=== PATIENT | male | born 1955 | race Caucasian/White ===

== ENCOUNTER 2017-06-28 03:29 | Observation (INO) | payer OTHER, SELFPAY ==
[2017-06-28] VITALS (11 sets, daily range): BP systolic 126–184; BP diastolic 69–111; PULSE 50–69; RESP 12–99; TEMP 36.3–37.1; O2SAT 14–99; BMI 29.4; BMI 29.2
--- NOTE | 2017-06-28 | GALL_PTH ---
PATIENT: SERENA COLLIER LOC: MS3 U#:[id number] AGE/SX: 62/M ROOM: IN323 RE06/28/[address]: Dr. Ezequiel Hatfield MD : [id number] BED: 1 DIS: 06/29/2017 SPEC #: [id number] RECD: 06/28/17 14:53 STATUS: ASHLEY REAlba #: [id number] INEZ: 06/28/17 00:[address]: Ezequiel Hatfield DEPT: SURGICAL PATHOLOGY RECD BY: Stan Umana ENTERED: 06/28/17 14:54 SP TYPE: DORIS ONOFRE DR: Dr. Gutierrez Church MD Tissues: A - Gallbladder, NOS B - Liver, NOS Procedures: PAS with Diastase (control) Trichrome (control) Special Stain Group II FE Group II (charge) PAS Stain (control) Surgery Specimen Level III Surgery Specimen Level V Retic (control) HEADER OPERATION: Laparoscopic cholecystectomy, biopsy of liver lesion PRE-OP DIAGNOSIS: Acute cholecystitis TISSUE SUBMITTED: A ? Gallbladder, B ? Liver biopsy MICROSCOPIC DIAGNOSIS A. Gallbladder: Chronic cholecystitis and cholelithiasis. B. Liver, core biopsy: Liver parenchymal tissue with moderate macrovesicular steatosis and mild portal chronic inflammation. See microscopic description and comment. SJ:ana 07/01/17 COMMENT B. Correlation with clinical findings and appropriate follow up are necessary. MICROSCOPIC DESCRIPTION Slides are reviewed. B. The specimen shows a core of liver parenchymal tissue with preserved lobular architecture. Hepatocytes show moderate steatosis. Significant lobular inflammation is not seen. Portal areas show mild chronic inflammation. Iron stain show trace amount of iron. PAS with and without diastase do not show any abnormal accumulation of protein. Trichrome does not show any significant increase of portal or periportal fibrosis. Reticulin stain is unremarkable. All stains are performed with appropriate matched control. GROSS DESCRIPTION A - Received is one container labeled with the patient's name and designated gallbladder. The specimen consists of a gallbladder measuring 12 cm in length and 3 cm in diameter. The external surface is pink-dorman, smooth and glistening for the most part. Focally it is granular, hemorrhagic and contains cautery artifact. The gallbladder contains yellowish, thick mucoid bile and one ovoid yellowish stone measuring 4.5 x 1 x 1.2 cm. The mucosa is bile-stained and without any mass lesions. The gallbladder wall measures up to 0.3 cm in thickness. Cook Cold Meat sections from the gallbladder and the cystic duct are submitted in one cassette. B - Received in fixative is one container labeled with the patient's name and designated liver biopsy. The specimen consists of elongated fragments of brownish-pink tissue measuring 1.5 cm in length and 0.1 cm in diameter. / SJ:rg 06/28/17 TC:3 CPT: 24112, 21594, 61593 x5
--- NOTE | 2017-06-28 04:06 | ED.VIS.GEN ---
History of Present Illness Chief Complaint: Abd Pain Informant: Patient Onset: Hours - around 20 Context: Gradual Onset Timing: Continuous Quality: dull achy Location: periumbilical Current Severity: Moderate Maximum Severity: Moderate Worsened by: deep breathing Relieved by: maybe a little w/ BM, but otherwise nothing Associated Symptoms: nausea, bloating. no vtg, constipation, diarrhea, BRBPR, melena, urinary sx Narrative: Has had some intermittent discomfort in his low back that is worse with sitting in a vehicle, seems a little more prominent since his abdomen started hurting, but not the most severe symptom. No worse with eating toast but that is the only thing he has eaten in the last day, since he has had a decreased appetite. No history of abdominal surgeries or pain like this in the past. Prior similar symptoms: No Recent Illness/Hospitalization: No Past Medical History - Allergies and Home Meds Allergies/Adverse Reactions: Allergies No Known Allergies Allergy (Verified 06/28/17 03:32) Home Medications: Home Medications Medication Instructions Recorded Aspirin [Aspirin EC] 1 tab PO DAILY 06/28/17 Gemfibrozil [Lopid] 600 mg PO BIDAC 06/28/17 Insulin Glargine [Lantus (BKC)] 14 units SC QHS 06/28/17 Metformin HCl 1,000 mg PO BID 06/28/17 Multivitamin [Multiple Vitamins] 1 each PO DAILY 06/28/17 Primary Care Physician: Gutierrez Church MD [Primary Care Provider] - Past Medical History: None Surgical History: no surgical history Lives: Spouse/ Significant Other Smoking Status: Never smoker Drugs: None Review of Systems All systems negative except as indicated General: Denies: Fever Cardiovascular: Denies: Chest pain, Palpitations Respiratory: Denies: Dyspnea, Cough Gastrointestinal: Reports: Abdominal pain, Nausea. Denies: Vomiting, Diarrhea, Constipation, Melena, Hematochezia Genitourinary: Denies: Dysuria, Hematuria Musculoskeletal: Reports: Back pain - no radiation . Denies: Swelling, Extremity Pain Skin: Denies: Rash Neurological: Denies: Headache, Weakness, Parasthesia, Numbness Physical Exam Vital Signs/Narrative: Vital Signs Temp Pulse Resp BP Pulse Ox 06/28/17 03:30 97.7 F L 67 20 H 184/111 H 97 General: Well nourished, Well developed Head: Normocephalic, Atraumatic Eyes: Perrl, EOMI ENT: Moist mucous membranes, No rhinorrhea Neck: Supple, Nontender Cardiovascular: Regular rate, Regular rhythm, No murmurs Respiratory: No distress, CTA bilaterally, Chest nontender Abdomen: Soft, Nondistended, Normal bowel sounds, Tender - RUQ and epigastrium; otherwise, NT/benign.. Negative for: Guarding, Rebound tenderness Back: Nontender, Normal Inspection Extremities: Nontender, No edema Skin: Normal color, No rash Neurological: Alert, Oriented x3, Cranial nerves II-XII grossly intact, Normal Strength, Normal Sensation, Normal Gait Psychological: Normal affect Diagnostic/Tx/Re-eval Laboratory Results 06/28/17 06/28/17 Range/Units 03:35 03:35 WBC 9.2 (4.4-11.0) K/mm3 RBC 4.94 (4.6-6.2) M/mm3 Hgb 15.0 (13.0-16.5) g/dl Hct 43.7 (40-54) % MCV 88.5 (80-94) fL MCH 30.4 (27.0-32.0) pg MCHC 34.3 (32-36) g/gl RDW 12.9 (11.6-14.6) % RDW Differential 41.5 (35.1-43.9) fl Plt Count 189 (150-450) K/mm3 MPV 11.8 (6.2-12.0) fl Immature Gran % (Auto) 0.200 (0.0-0.9) % Neut % (Auto) 69.2 (47-70) % Lymph % (Auto) 19.2 (19-41) % [place] % (Auto) 8.4 (0-10) % Eos % (Auto) 2.8 (0-5) % Baso % (Auto) 0.2 (0-1) % Absolute Neuts (auto) 6.4 (2.0-7.7) X10^3/uL Absolute Lymphs (auto) 1.77 (0.83-4.51) X10^3/ul Total Counted Not Reportable Sodium 140 (136-145) mmol/L Potassium 4.5 (3.5-5.1) mmol/L Chloride 104 (98-107) mmol/L Carbon Dioxide 28.0 (21.0-32.0) mmol/L Anion Gap 8 (5-15) BUN 20 H (7-18) mg/dL Creatinine 1.05 (0.70-1.30) mg/dL Estim Creat Clear Calc 82.12 ml/min Est GFR (MDRD) Af Amer 93 (>60) mL/min Est GFR (MDRD) Non-Af 77 (>60) mL/min BUN/Creatinine Ratio 19.0 (10-20) RATIO Glucose 138 H (74-106) mg/dL Calcium 9.2 (8.5-10.1) mg/dL Total Bilirubin 0.70 (0.20-1.00) mg/dL AST 21 (15-37) U/L ALT 48 (16-61) U/L Alkaline Phosphatase 101 (45-117) U/L Total Protein 7.8 (6.4-8.2) g/dL Albumin 3.8 (3.2-5.0) g/dL Globulin 4.0 (2.2-4.2) g/dL Albumin/Globulin Ratio 1.0 (0.9-2.4) RATIO Lipase 696 H (73-393) U/L Clinical Impression(s) from Imaging Studies Abdomen/Pelvis CT 06/28/17 04:53 IMPRESSION: Hepatomegaly and fatty liver. Cholelithiasis. Gallbladder wall thickening and pericholecystic fluid. An 11 mm stone is present in the gallbladder neck or the cystic duct. No evidence of acute intestinal pathology or acute obstructive uropathy. Electronically Signed: Alec Gutierrez MD at 5:37 EDT Tel , Service support , - Rhythm Strip Rhythm Strip: Sinus Rhythm Rate: 60 Ectopy: None - EKG 1 Interpretation: No Acute Injury Pattern, - - Ectopic atrial rhythm. Normal axis. Normal T waves. - Medical Decision Making Initially, patient given intramuscular Bentyl 10 mg and a GI cocktail, along with IV fluids and Zofran. On reevaluation, he states the symptoms definitely feel better, but his labs are showing an elevated lipase in the high 600s. Given the area where he is tender, my concern is for choledocholithiasis, early cholecystitis, cholangitis, or combination of these problems that could be related to his symptoms and this abnormality. Ultrasound is not available at this hour. Therefore, he is sent for CT scan. Of note, upon presentation before I saw the patient, nurses were concerned about the vagueness of his symptoms and in his upper abdomen, and the fact that he may have had some ST elevation on the monitor, so an EKG was obtained. It may show an ectopic atrial rhythm, but otherwise the EKG is normal and there are no signs of any acute ischemia. CT shows cholelithiasis, signs of early cholecystitis, and a large stone that is either in the cystic duct or neck of the gallbladder. This is all probably causing the patient's pain. His elevated lipase is concerning for either recent or current choledocholithiasis although we do not have the ability to ultrasound him at this time to determine the diameter of the common bile duct. The patient will need to be admitted for further treatment. In discussing with the patient and his , they are requesting Dr. Sims. He is not on-call right now, but they would prefer to stay with his group. Therefore, discussed with Dr. Hatfield, who will evaluate the patient. Will administer antibiotics. ED Disposition - Plan for ED Patient: Disposition: Acute Care Hospital [facility] Chief Complaint: Abd Pain Diagnosis: Cholecystitis, acute with cholelithiasis, Elevated lipase Referrals: Gutierrez Church MD [Primary Care Provider] -
[2017-06-28 04:18] LABS: Absolute Lymphocyte Count 1.77 X10^3/ul (0.83-4.51); Absolute Neutrophil Count 6.4 X10^3/uL (2.0-7.7); Basophil# 0.02 X10^3/uL; Basophil% 0.2 % (0-1); Eosinophil# 0.26 X10^3/uL; Eosinophils% 2.8 % (0-5); Hematocrit 43.7 % (40-54); Lymphocyte # 1.77 X10^3/ul (4.0); Lymphocyte % 19.2 % (19-41); Mean Corp Hgb Conc 34.3 g/gl (32-36); Mean Corpuscular Hgb 30.4 pg (27.0-32.0); Mean Corpuscular Volume 88.5 fL (80-94); Mean Platelet Vol. 11.8 fl (6.2-12.0); Monocyte# 0.77 X10^3/uL; Monocyte% 8.4 % (0-10); Neutrophil # 6.36 X10^3/uL (2.7-7.7); Neutrophil % 69.2 % (47-70); Platelet Count 189 K/mm3 (150-450); RBC Distribution Width CV 12.9 % (11.6-14.6); RBC Distribution Width SD 41.5 fl (35.1-43.9); Red Blood Count 4.94 M/mm3 (4.6-6.2); White Blood Count 9.2 K/mm3 (4.4-11.0)
[2017-06-28 04:19] LABS: POSITIVE COUNT NO; POSITIVE DIFFERENTIAL NO; POSITIVE MORPHOLOGY NO
[2017-06-28] MEDS: Dicyclomine 20 MG/2 ML Vial 10 MG IM (04:19)
[2017-06-28] MEDS: Ondansetron 4 MG/2 ML Vial IV (04:20)
[2017-06-28 04:24] LABS: Red Blood Cells-Urine 0 SEEN /hpf (0-5); Squamous Epithelial Cells - UA 0 SEEN /hpf (0-5); White Blood Cells 0 SEEN /hpf (0-5)
[2017-06-28 04:27] LABS: AST(SGOT) 21 U/L (15-37); Alanine Aminotransfer ALT/SGPT 48 U/L (16-61); Albumin, Serum 3.8 g/dL (3.2-5.0); Alkaline Phosphatase 101 U/L (45-117); Anion Gap 8 (5-15); BUN 20 mg/dL (7-18); Calcium,Total 9.2 mg/dL (8.5-10.1); Chloride 104 mmol/L (98-107); Creatinine, Serum 1.05 mg/dL (0.70-1.30); EST Glomerular Filtration Rate 77 mL/min (>60); Est Glom Filt Rate - Afr Amer 93 mL/min (>60); Estimated Creatinine Clearance 82.12 ml/min; Glucose 138 mg/dL (74-106); Lipase 696 U/L (73-393); Potassium 4.5 mmol/L (3.5-5.1); Protein, Total 7.8 g/dL (6.4-8.2); Sodium Level 140 mmol/L (136-145)
--- NOTE | 2017-06-28 04:53 | CT_ITS ---
STUDY: CT ABDOMEN AND PELVIS WITH CONTRAST REASON FOR EXAM: Male, 62 years old. Right upper quadrant pain and elevated lipase RADIATION DOSAGE (If Supplied By Facility): CTDIvol = ( 10.08 ) mGy, DLP = ( 1092.78 ) mGycm TECHNIQUE: Transaxial images were obtained from the dome of the diaphragm to the symphysis pubis without oral contrast. 100ML ml of Isovue 300 contrast was administered. Sagittal and coronal images were reconstructed. Individualized dose optimization techniques were used for this CT. COMPARISON: None. FINDINGS: The visualized lung bases are unremarkable. The visualized portions of the heart are within normal limits. Hepatomegaly and fatty liver. Cholelithiasis. Gallbladder wall thickening and pericholecystic fluid. An 11 mm stone is present in the gallbladder neck or the cystic duct. Normal spleen. Normal pancreas. Normal bilateral adrenal glands. Multiple right renal cysts, the largest measuring 3.4 cm. Normal left kidney. Normal visualized stomach. Normal small intestine. Normal colon. The appendix is visualized and appears normal. Normal abdominal aorta. Normal inferior vena cava. Normal retroperitoneum. Normal urinary bladder. Normal abdominal wall. There are diffuse degenerative changes of the visualized lumbar spine. CT/Abdomen/Pelvis W IV Cont ONLY IMPRESSION: Hepatomegaly and fatty liver. Cholelithiasis. Gallbladder wall thickening and pericholecystic fluid. An 11 mm stone is present in the gallbladder neck or the cystic duct. No evidence of acute intestinal pathology or acute obstructive uropathy. Electronically Signed: Alec Gutierrez MD at 5:37 EDT Tel , Service support ,
[2017-06-28 05:23] LABS: Color, Urine Yellow (Yellow); Glucose, Dipstick Normal (Normal); Ketone-Dipstick Negative (Negative); Leukocyte Esterase-Dipstick Negative /ul (Negative); Nitrite-Dipstick Negative (Negative); Occult Blood-Urine Negative /ul (Negative); Protein-Dipstick Negative (Negative); Specific Gravity, Urine 1.015 (1.002-1.030); Urine Bilirubin Dipstick Negative (Negative); Urine Clarity Sl. Cloudy (Clear); Urine Urobilinogen Normal (Normal); Urine pH 6.5 (5.0 - 8.0)
--- NOTE | 2017-06-28 05:33 | EKG12_ITS ---
Test Reason : ABDPAIN Blood Pressure : / mmHG Vent. Rate : 059 BPM Atrial Rate : 059 BPM P-R Int : 150 ms QRS Dur : 092 ms QT Int : 396 ms P-R-T Axes : -43 000 030 degrees QTc Int : 392 ms Unusual P axis, possible ectopic atrial bradycardia Abnormal ECG Confirmed by ANT DURAND, KIANA ([id number]), scientific editor MARISSA WESLEY ([id number]) on 07/01/2017 1:58:17 PM Referred By: MARCELA Confirmed By:KIANA CAIN MD
[2017-06-28 05:38] LABS: Bacteria RARE /hpf (None Seen); Mucous, Urine RARE /hpf (<or=2+)
--- NOTE | 2017-06-28 06:42 | PCM.HP.STD ---
Problem List (1) Acute cholecystitis Status: Acute (2) Biliary acute pancreatitis Status: Acute Qualifiers: Acute pancreatitis complication: no infection or necrosis Qualified Code(s): K85.10 - Biliary acute pancreatitis without necrosis or infection History of Present Illness Date of Admission: 06/28/17 The patient is a 62 year old M who began to have epigastric and right upper quadrant pain yesterday morning. He reports a lot of belching with no vomiting. He also reports abdominal bloating. He has been having RUQ pain radiating to his back for the last two weeks intermittently. He reports no fevers or chills. He also says he is having midepigastric pain radiating to the back today. Past Medical History Allergies No Known Allergies Allergy (Verified 06/28/17 03:32) Home Medications: Ambulatory Orders Medication Instructions Recorded Aspirin [Aspirin EC] 1 tab PO DAILY 06/28/17 Gemfibrozil [Lopid] 600 mg PO BIDAC 06/28/17 Insulin Glargine [Lantus (BKC)] 14 units SC QHS 06/28/17 Metformin HCl 1,000 mg PO BID 06/28/17 Multivitamin [Multiple Vitamins] 1 each PO DAILY 06/28/17 Surgical History: no surgical history Lives: Spouse/ Significant Other Smoking Status: Never smoker Drugs: None Review of Systems Constitutional: Denies: Chills, Fever HEENT: Denies: Difficulty Swallowing Cardiovascular: Denies: Chest Pain Respiratory: Denies: Cough, Shortness of Breath Gastrointestinal: Reports: Abdominal Pain - Right upper quadrant pain and epigastric pain radiating to the back, Nausea. Denies: Hematemesis, Hematochezia, Vomiting Genitourinary: Denies: Dysuria Musculoskeletal: Reports: Back Pain. Denies: Joint Tenderness Skin: Denies: Dryness Neurological: Denies: Headaches Psychiatric: Denies: Depression Hematologic/ Lymphatic: Denies: Adenopathy, Anemia VTE Information - Inpt Only VTE Present on Admission: No VTE Mechan Device Prophylaxis: SCD's VTE Pharm Prophylaxis ordered?: No Patient Problems: Active and Suspected Problems Cholecystitis, acute with cholelithiasis (Acute) Elevated lipase (Acute) Acute cholecystitis (Acute) Biliary acute pancreatitis (Acute) - Physical Exam General: Alert, Oriented x3, Cooperative, No apparent distress HEENT: Atraumatic, PERRLA, EOMI Oral: Moist Mucosa Neck: Supple Lungs: Normal air movement Cardiovascular: Regular rate, Regular Rhythm Abdomen: Soft, Non-Distended, Tender - Tender in the right upper quadrant with positive Isidro sign. No guarding or rebound. Extremities: No clubbing Skin: No rashes Musculoskeletal: No Muscle Wasting Neurological: Cranial nerves II-XII grossly intact Psych/Mental Status: Normal Affect, Appropriate Vital Signs Temp Pulse Resp BP Pulse Ox 97.7 F L 54 L 99 H 160/92 H 14 06/28/17 03:30 06/28/17 05:30 06/28/17 05:30 06/28/17 05:30 06/28/17 05:30 Oxygen Delivery Method Room Air Weight: 217 lb 2.485 oz Body Mass Index (BMI) 29.4 Laboratory Tests Past 24 Hrs 06/28/17 06/28/17 06/28/17 03:35 03:35 04:20 WBC 9.2 RBC 4.94 Hgb 15.0 Hct 43.7 MCV 88.5 MCH 30.4 MCHC 34.3 RDW 12.9 RDW Differential 41.5 Plt Count 189 MPV 11.8 Immature Gran % (Auto) 0.200 Neut % (Auto) 69.2 Lymph % (Auto) 19.2 [place] % (Auto) 8.4 Eos % (Auto) 2.8 Baso % (Auto) 0.2 Absolute Neuts (auto) 6.4 Absolute Lymphs (auto) 1.77 Total Counted Not Reportable Sodium 140 Potassium 4.5 Chloride 104 Carbon Dioxide 28.0 Anion Gap 8 BUN 20 H Creatinine 1.05 Estim Creat Clear Calc 82.12 Est GFR (MDRD) Af Amer 93 Est GFR (MDRD) Non-Af 77 BUN/Creatinine Ratio 19.0 Glucose 138 H Calcium 9.2 Total Bilirubin 0.70 AST 21 ALT 48 Alkaline Phosphatase 101 Total Protein 7.8 Albumin 3.8 Globulin 4.0 Albumin/Globulin Ratio 1.0 Lipase 696 H Urine Color Yellow Urine Clarity Sl. Cloudy Urine pH 6.5 Ur Specific [place] 1.015 Urine Protein Negative Urine Glucose (UA) Normal Urine Ketones Negative Urine Occult Blood Negative Urine Nitrite Negative Urine Bilirubin Negative Urine Urobilinogen Normal Ur Leukocyte Esterase Negative Urine RBC 0 SEEN Urine WBC 0 SEEN Ur Squamous Epith Cells 0 SEEN Urine Bacteria RARE Urine Mucus RARE Clinical Impression(s) from Imaging Studies Abdomen/Pelvis CT 05/04/18 04:53 IMPRESSION: Hepatomegaly and fatty liver. Cholelithiasis. Gallbladder wall thickening and pericholecystic fluid. An 11 mm stone is present in the gallbladder neck or the cystic duct. No evidence of acute intestinal pathology or acute obstructive uropathy. Electronically Signed: Alec Gutierrez MD at 5:37 EDT Tel , Service support , Assessment/Plan Active and Suspected Problems Cholecystitis, acute with cholelithiasis (Acute) Elevated lipase (Acute) Acute cholecystitis (Acute) Biliary acute pancreatitis (Acute) 62-year-old male with acute cholecystitis and gallstone pancreatitis 1. The patient has right upper quadrant pain which started acutely yesterday. He has been having on and off pain for the last 2 weeks in the right upper quadrant. Patient also has an elevated lipase. On CT scan the patient has a thickened gallbladder with pericholecystic fluid and multiple gallstones in the neck of the gallbladder. I believe is consistent with acute cholecystitis as well as gallstone pancreatitis from a stone that may have passed already. 2. I recommend laparoscopic cholecystectomy to the patient. I explained the procedure in detail as well as the risks including bleeding, infection, injury to surrounding organs such as the bile duct, liver, bowels. I also explained the possibility of having to convert to an open procedure. I also explained the possibility that there may be retained stones in the common bile duct and he may require further procedures such as ERCP. The patient understands all the risks and is willing to proceed with surgery. 3. I will admit the patient to the floor until OR is ready. I will start him on some antibiotics for acute cholecystitis and keep him n.p.o. I will also start him on insulin sliding scale for his diabetes. Ezequiel Hatfield MD Pager: [facility] [address] [place] [address], [address] [place] [address] Office:
[2017-06-28] MEDS: Morphine 4 MG/ML Syringe IV ×2 (06:46→08:17)
--- NOTE | 2017-06-28 06:48 | HP.PCM_ITS ---
Problem List (1) Acute cholecystitis Status: Acute (2) Biliary acute pancreatitis Status: Acute Qualifiers: Acute pancreatitis complication: no infection or necrosis Qualified Code(s) : K85.10 - Biliary acute pancreatitis without necrosis or infection History of Present Illness Date of Admission: 06/28/17 The patient is a 62 year old M who began to have epigastric and right upper quadrant pain yesterday morning. He reports a lot of belching with no vomiting. He also reports abdominal bloating. He has been having RUQ pain radiating to his back for the last two weeks intermittently. He reports no fevers or chills. He also says he is having midepigastric pain radiating to the back today. Past Medical History Allergies No Known Allergies Allergy (Verified 06/28/17 03:32) Home Medications: Ambulatory Orders Medication Instructions Recorded Aspirin [Aspirin EC] 1 tab PO DAILY 06/28/17 Gemfibrozil [Lopid] 600 mg PO BIDAC 06/28/17 Insulin Glargine [Lantus (BKC)] 14 units SC QHS 06/28/17 Metformin HCl 1,000 mg PO BID 06/28/17 Multivitamin [Multiple Vitamins] 1 each PO DAILY 06/28/17 Surgical History: no surgical history Lives: Spouse/ Significant Other Smoking Status: Never smoker Drugs: None Review of Systems Constitutional: Denies: Chills, Fever HEENT: Denies: Difficulty Swallowing Cardiovascular: Denies: Chest Pain Respiratory: Denies: Cough, Shortness of Breath Gastrointestinal: Reports: Abdominal Pain - Right upper quadrant pain and epigastric pain radiating to the back, Nausea. Denies: Hematemesis, Hematochezia, Vomiting Genitourinary: Denies: Dysuria Musculoskeletal: Reports: Back Pain. Denies: Joint Tenderness Skin: Denies: Dryness Neurological: Denies: Headaches Psychiatric: Denies: Depression Hematologic/ Lymphatic: Denies: Adenopathy, Anemia VTE Information - Inpt Only VTE Present on Admission: No VTE Mechan Device Prophylaxis: SCD's VTE Pharm Prophylaxis ordered?: No Patient Problems: Active and Suspected Problems Cholecystitis, acute with cholelithiasis (Acute) Elevated lipase (Acute) Acute cholecystitis (Acute) Biliary acute pancreatitis (Acute) - Physical Exam General: Alert, Oriented x3, Cooperative, No apparent distress HEENT: Atraumatic, PERRLA, EOMI Oral: Moist Mucosa Neck: Supple Lungs: Normal air movement Cardiovascular: Regular rate, Regular Rhythm Abdomen: Soft, Non-Distended, Tender - Tender in the right upper quadrant with positive Isidro sign. No guarding or rebound. Extremities: No clubbing Skin: No rashes Musculoskeletal: No Muscle Wasting Neurological: Cranial nerves II-XII grossly intact Psych/Mental Status: Normal Affect, Appropriate Vital Signs Temp Pulse Resp BP Pulse Ox 97.7 F L 54 L 99 H 160/92 H 14 06/28/17 03:30 06/28/17 05:30 06/28/17 05:30 06/28/17 05:30 06/28/17 05:30 Oxygen Delivery Method Room Air Weight: 217 lb 2.485 oz Body Mass Index (BMI) 29.4 Laboratory Tests Past 24 Hrs 06/28/17 06/28/17 06/28/17 03:35 03:35 04:20 WBC 9.2 RBC 4.94 Hgb 15.0 Hct 43.7 MCV 88.5 MCH 30.4 MCHC 34.3 RDW 12.9 RDW Differential 41.5 Plt Count 189 MPV 11.8 Immature Gran % (Auto) 0.200 Neut % (Auto) 69.2 Lymph % (Auto) 19.2 [place] % (Auto) 8.4 Eos % (Auto) 2.8 Baso % (Auto) 0.2 Absolute Neuts (auto) 6.4 Absolute Lymphs (auto) 1.77 Total Counted Not Reportable Sodium 140 Potassium 4.5 Chloride 104 Carbon Dioxide 28.0 Anion Gap 8 BUN 20 H Creatinine 1.05 Estim Creat Clear Calc 82.12 Est GFR (MDRD) Af Amer 93 Est GFR (MDRD) Non-Af 77 BUN/Creatinine Ratio 19.0 Glucose 138 H Calcium 9.2 Total Bilirubin 0.70 AST 21 ALT 48 Alkaline Phosphatase 101 Total Protein 7.8 Albumin 3.8 Globulin 4.0 Albumin/Globulin Ratio 1.0 Lipase 696 H Urine Color Yellow Urine Clarity Sl. Cloudy Urine pH 6.5 Ur Specific [place] 1.015 Urine Protein Negative Urine Glucose (UA) Normal Urine Ketones Negative Urine Occult Blood Negative Urine Nitrite Negative Urine Bilirubin Negative Urine Urobilinogen Normal Ur Leukocyte Esterase Negative Urine RBC 0 SEEN Urine WBC 0 SEEN Ur Squamous Epith Cells 0 SEEN Urine Bacteria RARE Urine Mucus RARE Clinical Impression(s) from Imaging Studies Abdomen/Pelvis CT 05/04/18 04:53 IMPRESSION: Hepatomegaly and fatty liver. Cholelithiasis. Gallbladder wall thickening and pericholecystic fluid. An 11 mm stone is present in the gallbladder neck or the cystic duct. No evidence of acute intestinal pathology or acute obstructive uropathy. Electronically Signed: Alec Gutierrez MD at 5:37 EDT Tel , Service support , Assessment/Plan Active and Suspected Problems Cholecystitis, acute with cholelithiasis (Acute) Elevated lipase (Acute) Acute cholecystitis (Acute) Biliary acute pancreatitis (Acute) 62-year-old male with acute cholecystitis and gallstone pancreatitis 1. The patient has right upper quadrant pain which started acutely yesterday. He has been having on and off pain for the last 2 weeks in the right upper quadrant. Patient also has an elevated lipase. On CT scan the patient has a thickened gallbladder with pericholecystic fluid and multiple gallstones in the neck of the gallbladder. I believe is consistent with acute cholecystitis as well as gallstone pancreatitis from a stone that may have passed already. 2. I recommend laparoscopic cholecystectomy to the patient. I explained the procedure in detail as well as the risks including bleeding, infection, injury to surrounding organs such as the bile duct, liver, bowels. I also explained the possibility of having to convert to an open procedure. I also explained the possibility that there may be retained stones in the common bile duct and he may require further procedures such as ERCP. The patient understands all the risks and is willing to proceed with surgery. 3. I will admit the patient to the floor until OR is ready. I will start him on some antibiotics for acute cholecystitis and keep him n.p.o. I will also start him on insulin sliding scale for his diabetes. Ezequiel Hatfield MD Pager: [facility] [address] [place] [address], [address] [place] [address] Office:
[2017-06-28 08:16] LABS: Bedside Glucose 139 mg/dL (70-110)
[2017-06-28] MEDS: Dextrose 5%-Lactated Ringers 1,000 ML 125 ML IV (08:19)
--- NOTE | 2017-06-28 10:08 | NURSING ---
called report to Princess in [facility] at this time.
--- NOTE | 2017-06-28 10:59 | RAD_ITS ---
CLINICAL HISTORY: Male, 62 years old. Single image interpretation for a fluoroscopic image PROCEDURE: Fluoroscopic image for cholangiogram and fluoroscopic timing recording. CHOLANGIOGRAM - 0.23 FLUOROSCOPY TIME (if supplied): (0:23) minutes/seconds A single limited fluoroscopic images seen with a catheter overlying the right upper quadrant and contrast being inserted. Contrast is seen being injected. Given the imaging provided it is limited there may be contrast within the duct or potentially extravasated. RAD/Cholangiogram/ O R,Initial IMPRESSION: Single fluoroscopic image showing contrast administration during cholangiogram recommended intraoperative notes. Electronically Signed: Omaira Farmer MD at 14:28 EDT Tel , Service support ,
[2017-06-28] MEDS: Bupivacaine Mpf 0.5% 30 ML VIAL (13:58)
--- NOTE | 2017-06-28 14:04 | PCM.OPRPT ---
Problem List (1) Acute cholecystitis Status: Acute (2) Biliary acute pancreatitis Status: Acute Qualifiers: Acute pancreatitis complication: no infection or necrosis Qualified Code(s): K85.10 - Biliary acute pancreatitis without necrosis or infection Report of Operation Date of Procedure: 06/28/17 Pre-Operative Diagnosis: Acute cholecystitis Post-Operative Diagnosis: Acute cholecystitis with impacted cystic duct stone Surgery/Procedure Performed:: 1. Laparoscopic cholecystectomy with cholangiogram and attempted common bile duct exploration. 2. Laparoscopic biopsy of liver lesion Specimen's removed: 1. Liver lesion. 2. Gallbladder and contents Drains: YURY to bulb suction Description of Procedure: After obtaining informed consent patient was brought back to the operating room. General anesthesia was induced. The abdomen was prepped and draped in usual sterile fashion. A small midline incision was made superior to the umbilicus and deepened to the level of fascia. The fascia was elevated and incised. Next the peritoneum was elevated and incised in the same fashion. Finger sweep was performed and the [place] trocar was placed into the abdomen. The balloon was inflated. The abdomen was inflated to 15 mmHg. Next a camera was introduced into the abdomen and the abdomen was inspected. Next under direct visualization three 5-mm ports were placed one subxiphoid and 2 subcostal. The gallbladder was aspirated because it was tense and unable to be grasped. Next the gallbladder was elevated and retracted toward the right shoulder. The peritoneum was stripped from the gallbladder. The infundibulum was located and retracted laterally. Next the triangle of Calot was dissected and the cystic duct and cystic artery were identified. The cystic artery was obstructing the view of the cystic duct and so it was clipped and divided. Cholangiograms were then attempted. I placed a Lucia clamp across the distal gallbladder and the needle was placed into the gallbladder. Next under fluoroscopy the gallbladder was instilled with contrast. This did show a distal cystic duct stone and the common bile duct was beginning to fill, the gallbladder then started to leak. The patient was placed back in a steep reverse Trendelenburg and the camera was placed back into the abdomen. The necrotic posterior gallbladder wall had blown out and leaked sludge. This was suctioned out. Next the epigastric port was upsized to a 10 mm port and a Ranfac catheter was placed through the necrotic hole into the cystic duct and a 10 mm clip was placed across the cystic duct. While attempting to flush the cystic duct all of the saline backwash as there was a distal obstruction of the cystic duct. The clip was then removed and visualization of the stone was then attempted. A second power was brought into the room and the choledocho scope was placed through the right upper quadrant incision and into the gallbladder. This was guided downward toward the cystic duct but I was unable to visualize a stone. There is too much sludge in the cystic duct. Next the gallbladder was taken off of the liver in a dome down fashion. It was dissected down until the common duct was identified I was unable to palpate this stone or milked backward. At this time I did not want to dissect any further distally for risk of injuring the common bile duct. Two 10 mm clips were placed across the cystic duct and it was divided. The gallbladder was placed in Endo Catch bag and removed through the umbilical incision. Gallbladder fossa was irrigated and no active bleeding or bile leakage was noted. The camera was then reinserted through the umbilical port. The gallbladder fossa was inspected once more and noted to be hemostatic with no leaking bile. A 15 [place] round drain was placed in the gallbladder fossa and placed to bulb suction. This was sutured in place with a 2-0 nylon suture. The abdomen was suctioned dry the 5 mm ports were removed under direct visualization. The umbilical port was then removed and the air was removed from the abdomen. Next using an 0 Vicryl suture the umbilical fascia was closed in a [id number] fashion. The epigastric port was also closed with an interrupted 0 Vicryl suture at the fascia level. The umbilical port site was irrigated local anesthetic was administered to all the incisions. All the incisions were closed subcuticular 4-0 Monocryl sutures followed by Steri-Strips and dressings. The patient was awoken and taken to PACU in stable condition.
[2017-06-28 14:50] LABS: Bedside Glucose 224 mg/dL (70-110)
[2017-06-28] MEDS: Lactated Ringers 1,000 ML 75 ML IV ×2 (16:48→22:30)
[2017-06-28] MEDS: Piperacil/Tazobactam 3.375 GM Q8 PREMIX IV ×2 (16:48→22:33)
[2017-06-28 17:11] LABS: Bedside Glucose 233 mg/dL (70-110)
[2017-06-28] MEDS: oxyCODONE 5 MG Tablet PO (17:58)
[2017-06-29] VITALS (10 sets, daily range): BP systolic 108–163; BP diastolic 60–91; PULSE 51–73; RESP 16–18; TEMP 36.4–37.1; O2SAT 94–100
[2017-06-29 00:11] LABS: Bedside Glucose 210 mg/dL (70-110)
[2017-06-29] MEDS: oxyCODONE 5 MG Tablet PO ×3 (00:13→14:59)
[2017-06-29] MEDS: Piperacil/Tazobactam 3.375 GM Q8 PREMIX IV ×2 (05:58→13:39)
[2017-06-29 06:06] LABS: Bedside Glucose 140 mg/dL (70-110)
[2017-06-29] MEDS: Acetaminophen 325 MG Tablet 650 MG PO ×2 (07:38→14:59)
--- NOTE | 2017-06-29 07:39 | NURSING ---
Dr Bowens entered pt's room while this nurse was taking pt's vitals. requested labs to be taken silvino as pt may need ERCP today. Called lab and asked for labs to be drawn silvino. Drain dressing was again soaked with hemoserous fluid. Dr Bowens stripped YURY drain tubing and replaced dressing. Handed off to RN Jose Luis events and instructions to keep pt NBM until lab results back and decision made if pt needs ERCP as per Dr Bowens.
--- NOTE | 2017-06-29 07:49 | PCM.PN.SRG ---
Patient Problems: Active and Suspected Problems Cholecystitis, acute with cholelithiasis (Acute) Elevated lipase (Acute) Acute cholecystitis (Acute) Biliary acute pancreatitis (Acute) Subjective: Patient is tolerating clears pain controlled with pain meds, YURY is serosanguineous, positive flatus - Physical Exam General: Alert, Oriented x3, Cooperative, No apparent distress HEENT: Atraumatic, Normocephalic Lungs: Normal air movement Cardiovascular: Regular rate Abdomen: Soft, Distended - Mild to moderate, Tender - Near incisions and YURY, YURY serosanguineous Extremities: No clubbing, No cyanosis, No edema Vital Signs Temp Pulse Resp BP Pulse Ox 97.5 F L 55 L 18 120/70 98 06/29/17 07:35 06/29/17 07:35 06/29/17 07:35 06/29/17 07:35 06/29/17 07:35 Oxygen Flow Rate (L/min) 2 Oxygen Delivery Method Room Air Weight: 215 lb 2.738 oz Body Mass Index (BMI) 29.2 Finger Stick Blood Glucose 224 Intake and Output for Last 24 Hours 06/27/17 06/28/17 06/29/17 23:59 23:59 23:59 Intake Total 475 / 475 2215 / 2215 Output Total 460 / 460 1480 / 1480 Balance 15 15 735 / 735 POC Glucose 06/29/17 06/29/17 06/28/17 05:54 00:03 16:56 POC Glucose 140 H 210 H 233 H 06/28/17 06/28/17 14:43 08:09 POC Glucose 224 H 139 H Medical Necessity - Tobacco Use Smoking Status: Never smoker Tobacco Use: Secondhand Assessment/Plan Active and Suspected Problems Cholecystitis, acute with cholelithiasis (Acute) Elevated lipase (Acute) Acute cholecystitis (Acute) Biliary acute pancreatitis (Acute) 62-year-old male status post laparoscopic cholecystectomy postop day 1 for acute cholecystitis, pancreatitis 1. Await LFTspending, if LFTs are elevated patient may need an ERCP today. If LFTs are normal patient may advance diet continues to do well we would remove the drain which is serosanguineous and DC him home. 2. Patient continued on Zosyn due to the acute cholecystitis as well as a possible stone in bile duct as we were unable to get clear cholangiograms during the surgery with a history of pancreatitis. 3. Diabetes continue sliding insulin scale. 4. Encourage ambulation. Layla Maravilla M.D. Pager: [phone] [facility] [address] [place] [address], [address] [place] [address] Office: [phone]
--- NOTE | 2017-06-29 07:52 | PN.SURG_ITS ---
Patient Problems: Active and Suspected Problems Cholecystitis, acute with cholelithiasis (Acute) Elevated lipase (Acute) Acute cholecystitis (Acute) Biliary acute pancreatitis (Acute) Subjective: Patient is tolerating clears pain controlled with pain meds, YURY is serosanguineous, positive flatus - Physical Exam General: Alert, Oriented x3, Cooperative, No apparent distress HEENT: Atraumatic, Normocephalic Lungs: Normal air movement Cardiovascular: Regular rate Abdomen: Soft, Distended - Mild to moderate, Tender - Near incisions and YURY, YURY serosanguineous Extremities: No clubbing, No cyanosis, No edema Vital Signs Temp Pulse Resp BP Pulse Ox 97.5 F L 55 L 18 120/70 98 06/29/17 07:35 06/29/17 07:35 06/29/17 07:35 06/29/17 07:35 06/29/17 07:35 Oxygen Flow Rate (L/min) 2 Oxygen Delivery Method Room Air Weight: 215 lb 2.738 oz Body Mass Index (BMI) 29.2 Finger Stick Blood Glucose 224 Intake and Output for Last 24 Hours 06/27/17 06/28/17 06/29/17 23:59 23:59 23:59 Intake Total 475 / 475 2215 / 2215 Output Total 460 / 460 1480 / 1480 Balance 15 15 735 / 735 POC Glucose 06/29/17 06/29/17 06/28/17 05:54 00:03 16:56 POC Glucose 140 H 210 H 233 H 06/28/17 06/28/17 14:43 08:09 POC Glucose 224 H 139 H Medical Necessity - Tobacco Use Smoking Status: Never smoker Tobacco Use: Secondhand Assessment/Plan Active and Suspected Problems Cholecystitis, acute with cholelithiasis (Acute) Elevated lipase (Acute) Acute cholecystitis (Acute) Biliary acute pancreatitis (Acute) 62-year-old male status post laparoscopic cholecystectomy postop day 1 for acute cholecystitis, pancreatitis 1. Await LFTspending, if LFTs are elevated patient may need an ERCP today. If LFTs are normal patient may advance diet continues to do well we would remove the drain which is serosanguineous and DC him home. 2. Patient continued on Zosyn due to the acute cholecystitis as well as a possible stone in bile duct as we were unable to get clear cholangiograms during the surgery with a history of pancreatitis. 3. Diabetes continue sliding insulin scale. 4. Encourage ambulation. Layla Maravilla M.D. Pager: [phone] [facility] [address] [place] [address], [address] [place] [address] Office: [phone]
[2017-06-29 08:05] LABS: Absolute Neutrophil Count 5.5 X10^3/uL (2.0-7.7); Basophil# 0.01 X10^3/uL; Basophil% 0.1 % (0-1); Eosinophil# 0.09 X10^3/uL; Eosinophils% 1.1 % (0-5); Hematocrit 38.1 % (40-54); Hemoglobin 12.7 g/dl (13.0-16.5); Lymphocyte % 18.8 % (19-41); Mean Corp Hgb Conc 33.3 g/gl (32-36); Mean Corpuscular Hgb 30.2 pg (27.0-32.0); Mean Corpuscular Volume 90.5 fL (80-94); Mean Platelet Vol. 11.8 fl (6.2-12.0); Monocyte% 11.3 % (0-10); Neutrophil # 5.48 X10^3/uL (2.7-7.7); Neutrophil % 68.6 % (47-70); Platelet Count 145 K/mm3 (150-450); RBC Distribution Width CV 12.8 % (11.6-14.6); RBC Distribution Width SD 42.4 fl (35.1-43.9); Red Blood Count 4.21 M/mm3 (4.6-6.2)
[2017-06-29 08:06] LABS: POSITIVE COUNT NO; POSITIVE DIFFERENTIAL NO; POSITIVE MORPHOLOGY NO
[2017-06-29 08:28] LABS: ALB/GLOB Ratio 0.9 RATIO (0.9-2.4); AST(SGOT) 105 U/L (15-37); Alanine Aminotransfer ALT/SGPT 229 U/L (16-61); Albumin, Serum 2.9 g/dL (3.2-5.0); Alkaline Phosphatase 75 U/L (45-117); Anion Gap 6 (5-15); BUN 16 mg/dL (7-18); BUN/Creat Ratio 15.8 RATIO (10-20); Chloride 104 mmol/L (98-107); Creatinine, Serum 1.01 mg/dL (0.70-1.30); EST Glomerular Filtration Rate 80 mL/min (>60); Est Glom Filt Rate - Afr Amer 97 mL/min (>60); Estimated Creatinine Clearance 85.37 ml/min; Globulin 3.3 g/dL (2.2-4.2); Glucose 134 mg/dL (74-106); Lipase 182 U/L (73-393); Protein, Total 6.2 g/dL (6.4-8.2); Sodium Level 140 mmol/L (136-145)
--- NOTE | 2017-06-29 10:34 | NURSING ---
REport called to Kellie Sosa RN, with vitals signs and blood glucose of 127, no coverage given. Informed that he has a hx of running cherie.
[2017-06-29 11:11] LABS: Bedside Glucose 127 mg/dL (70-110)
--- NOTE | 2017-06-29 11:25 | PN_ITS ---
Progress Note This morning the patient's LFTs have gone up. I explained to the patient the concern for obstruction in the common bile duct. I did recommend ERCP for evaluation of the common bile duct for obstruction. I explained the risks of ERCP including but not limited to bleeding, infection, perforation of the bile duct or bowel, pancreatitis. The patient understands risks and is want to proceed with surgery. I also swing the possibility of having to place a stent if I was unable to remove the stone or if I am unable to access the bile duct. Ezequiel Hatfield MD Pager: [facility] [address] [place] [address], [address] [place] [address] Office:
--- NOTE | 2017-06-29 11:30 | RAD_ITS ---
STUDY: ERCP. REASON FOR EXAM: Male, 62 years old. Gallstones. TECHNIQUE: 4 intraprocedural images were presented for interpretation. COMPARISON: CT the abdomen and pelvis, June 28, 2017. FINDINGS: Initial image demonstrates the endoscope in the duodenum with cannulization of the CBD. A wire extends upward into the left intrahepatic ducts. Contrast fills the ductal system without filling defect or mass. There is no evidence of stricture. The second through fifth images demonstrate evidence of a balloon stripping of the duct. Again no filling defect or mass is seen. Please refer to the procedural report for further details. RAD/ERCP Biliary Only IMPRESSION: ERCP in the OR. Electronically Signed: Bryan Garcia DO at 14:18 EDT Tel [phone], Service support ,
--- NOTE | 2017-06-29 12:38 | OP.PCM_ITS ---
Problem List (1) Acute cholecystitis Status: Acute (2) Biliary acute pancreatitis Status: Acute Qualifiers: Acute pancreatitis complication: no infection or necrosis Qualified Code(s) : K85.10 - Biliary acute pancreatitis without necrosis or infection Report of Operation Date of Procedure: 06/29/17 Pre-Operative Diagnosis: Elevated LFTs and gallstone pancreatitis Post-Operative Diagnosis: Common bile duct sludge Surgery/Procedure Performed:: ERCP with sphincterotomy Specimen's removed: None Description of Procedure: After describing the risks of the procedure as well as the procedure in detail informed consent was obtained. Patient was brought to the operating room and general anesthesia was induced. The patient was then placed in a semi-prone position. Next, the side-viewing endoscope was placed into the mouth and down into the stomach and advanced into the duodenum. The ampulla was located. A sphinctertome was used to cannulate the common bile duct and location was confirmed on fluoroscopy. The guidewire was placed in the common bile duct and using sphincterotome and electrocautery a sphincterotomy was performed. Hemostasis was good. Next the sphincterotome was removed leaving the guidewire in the common bile duct. A balloon was then introduced over the guidewire and the common bile duct and several sweeps were performed. The common bile duct was dilated to over 1 cm. The 12 mm balloon did not span the common bile duct at its midpoint. There was sludge removed from the distal common bile duct with no stones identified. There is no evidence of cystic duct leak. The balloon was removed as well as the guidewire. The side-viewing scope was then withdrawn back into the stomach and the stomach was suctioned. Next, the scope was removed. The patient's YURY was nonbilious and DC was anticipated so his right upper quadrant YURY was removed at the end of the procedure and a bandage was placed over this incision. The patient was taken to PACU in stable condition. The patient tolerated the procedure well.
--- NOTE | 2017-06-29 12:38 | PCM.DC.GB ---
Discharge Diet: Light diet - advance as tolerated Discharge Activity: Return to Normal Activity, May Not Drive - for 2-3 days or while taking narcotic pain medicataions., May Shower, - - Do not drive, work heavy equipment or sign legal documents for 24 hours. Additional Activity Instructions:: Pain medication may cause nausea. You should typically eat light foods as you take your pain medications. Pain medication may also cause constipation. If this is a problem for you, please discuss with your doctor. Call your doctor if your incision/area has: Continuous Slow Oozing, Sudden Increased Bleeding, Increased Pain/ Swelling, Increased Redness, Foul Smelling Discharge, Fever of 101 or Higher Call your doctor if you observe: Fever of 101 or Higher Suture Line Care: Avoid Pulling/Pushing, Avoid Pinching/Bending Additional Dressing/Incision Instructions:: Leave operative bandaids on for 2 days. When you remove dressing, leave Steri-Strips on until your follow-up appointment, or until the Steri-Strips fall off on their own. Allergies/Adverse Reactions: Allergies No Known Allergies Allergy (Verified 06/28/17 03:32) Medications to take at Discharge Aspirin [Aspirin EC] 1 tab PO DAILY 06/28/17 Fluticasone 0.05% [Flonase Nasal [place]] 1 spray NASAL QHS 06/28/17 Gemfibrozil [Lopid] 600 mg PO BIDAC 06/28/17 Insulin Glargine [Lantus (BKC)] 14 units SC QHS 06/28/17 Metformin HCl 1,000 mg PO BID 06/28/17 Multivitamin [Multiple Vitamins] 1 each PO DAILY 06/28/17 Oxycodone HCl/Acetaminophen [Percocet 5/325] 1 - 2 tablet PO Q4H PRN PRN 7 Days #30 tablet 06/29/17 The following prescriptions were given: Oxycodone HCl/Acetaminophen [Percocet 5/325] 1 - 2 tablet PO Q4H PRN PRN 7 Days #30 tablet PRN Reason: Pain Primary Care Physician: Gutierrez Church MD [Primary Care Provider] - Please Follow Up With: Ezequiel Hatfield MD When: Please call to schedule 2 week follow up appointment. [phone]
--- NOTE | 2017-06-29 12:41 | DS.PCM_ITS ---
Discharge Date and Diagnosis Date of Admission: 06/28/17 Date of Discharge: 06/29/17 - Primary Discharge Diagnosis Active and Suspected Problems Cholecystitis, acute with cholelithiasis (Acute) Elevated lipase (Acute) Acute cholecystitis (Acute) Biliary acute pancreatitis (Acute) Hospital Course and Treatment Imaging Results: 06/29/17 12:00 ERCP Biliary/Pancreas [RAD] Urgent O.R. Fluoro for C-Arm [RAD] Urgent Clinical Impression(s) from Imaging Studies Abdomen/Pelvis CT 06/28/17 04:53 IMPRESSION: Hepatomegaly and fatty liver. Cholelithiasis. Gallbladder wall thickening and pericholecystic fluid. An 11 mm stone is present in the gallbladder neck or the cystic duct. No evidence of acute intestinal pathology or acute obstructive uropathy. Electronically Signed: Alec Gutierrez MD at 5:37 EDT Tel , Service support , Cholangiogram 06/28/17 10:59 IMPRESSION: Single fluoroscopic image showing contrast administration during cholangiogram recommended intraoperative notes. Electronically Signed: Omaira Farmer MD at 14:28 EDT Tel , Service support , Operations: [email or web address], ERCP Procedures: None Summary of Care Provided: The patient is a 62 year old M who presented to the emergency room with right upper quadrant radiating to the back. CT showed thickening of the gallbladder wall as well as 2 calcified stones in the gallbladder at the neck. The patient was taken for laparoscopic cholecystectomy at that time the patient had a lot of inflammation in the right upper quadrant as well as a possible liver scar which was biopsied. After surgery YURY drain was left in place and the patient was admitted to the floor and kept on Zosyn. The following morning his LFTs had risen and there was concern for stone escaping the cystic duct and obstructing the common bile duct as a cholangiogram was never able to be performed during laparoscopic cholecystectomy due to the inflammation and impacted cystic duct stone. The patient was taken for ERCP the following morning which revealed a dilated common bile duct and distal common duct sludge. The YURY drain was removed and the patient was sent back to the floor. Once the patient was tolerating a diet he was discharged home. Discharge Diet: Light diet - advance as tolerated Discharge Activity: Return to Normal Activity, May Not Drive - for 2-3 days or while taking narcotic pain medicataions., May Shower, - - Do not drive, work heavy equipment or sign legal documents for 24 hours. Additional Activity Instructions:: Pain medication may cause nausea. You should typically eat light foods as you take your pain medications. Pain medication may also cause constipation. If this is a problem for you, please discuss with your doctor. Call your doctor if your incision/area has: Continuous Slow Oozing, Sudden Increased Bleeding, Increased Pain/ Swelling, Increased Redness, Foul Smelling Discharge, Fever of 101 or Higher Call your doctor if you observe: Fever of 101 or Higher Suture Line Care: Avoid Pulling/Pushing, Avoid Pinching/Bending Additional Dressing/Incision Instructions:: Leave operative bandaids on for 2 days. When you remove dressing, leave Steri-Strips on until your follow-up appointment, or until the Steri-Strips fall off on their own. Home Medications: Medications to take at Discharge Aspirin [Aspirin EC] 1 tab PO DAILY 06/28/17 Fluticasone 0.05% [Flonase Nasal [place]] 1 spray NASAL QHS 06/28/17 Gemfibrozil [Lopid] 600 mg PO BIDAC 06/28/17 Insulin Glargine [Lantus (BKC)] 14 units SC QHS 06/28/17 Metformin HCl 1,000 mg PO BID 06/28/17 Multivitamin [Multiple Vitamins] 1 each PO DAILY 06/28/17 Oxycodone HCl/Acetaminophen [Percocet 5/325] 1 - 2 tablet PO Q4H PRN PRN 7 Days #30 tablet 06/29/17 Following Prescrptions Were Given to Patient: Oxycodone HCl/Acetaminophen [Percocet 5/325] 1 - 2 tablet PO Q4H PRN PRN 7 Days #30 tablet PRN Reason: Pain Primary Care Physician: Gutierrez Church MD [Primary Care Provider] - Please Follow Up With: Ezequiel Hatfield MD When: Please call to schedule 2 week follow up appointment. [phone] Medical Necessity - Tobacco Use Smoking Status: Never smoker Tobacco Use: Secondhand Meaningful Use Info Meaningful Use Diagnoses (Choose all that apply): None applicable
[2017-06-29] MEDS: Lactated Ringers 1,000 ML 75 ML IV (12:47)
[2017-06-29 13:10] LABS: Bedside Glucose 119 mg/dL (70-110)
[2017-06-29 17:05] LABS: Bedside Glucose 176 mg/dL (70-110)
== END 2017-06-29 18:50 | disposition home or self-care (01) ==
LOC: ED 06:46 → MS2 06:49 → MS3 10:39
PROVIDERS: Admitting Provider Surgery; Emergency Provider Emergency Medicine; Family Provider Family Medicine; PCP Family Medicine; Visit Provider Surgery
PROC: (CPT 47610; principal; 2017-06-28 08:45)
DX: K80.12 Calculus of gallbladder with acute and chronic cholecystitis without obstruction (principal); K85.10 Biliary acute pancreatitis without necrosis or infection; Z79.82 Long term (current) use of aspirin; Z79.899 Other long term (current) drug therapy; Z79.4 Long term (current) use of insulin; R74.8 Abnormal levels of other serum enzymes; E11.9 Type 2 diabetes mellitus without complications; E78.00 Pure hypercholesterolemia, unspecified; K76.0 Fatty (change of) liver, not elsewhere classified
CPT/HCPCS: 43262; 47000; 47563; 36415; 74177; 74300; 74328; 74330; 76000; 80053; 81001; 82962; 83690; 85025; 88304; 88305; 88307; 88313; 93005; 96361; 96365; 96366; 96372; 96375; 96376; 99218; 99283; J7030; J7040; J7120; Q9967; A4216; C1769; G0378

== ENCOUNTER → 2024-07-13 | Outpatient (CLI) | payer MEDICARE, BC, SELFPAY ==
[2024-07-13 11:11] LABS: Anion Gap 10 (5-15); BUN 30 mg/dL (4-19); Calcium,Total 9.7 mg/dL (7.6-11.0); Carbon Dioxide 23.3 mmol/L (21.0-32.0); Chloride 102 mmol/L (98-108); Creatinine, Serum 1.19 mg/dL (0.70-1.20); EST Glomerular Filtration Rate 67 (>60); Glucose 241 mg/dL (70-99); Potassium 4.2 mmol/L (3.3-5.1); Sodium Level 135 mmol/L (133-145)
== END | disposition home or self-care (01) ==
LOC: LAB 10:22
PROVIDERS: PCP Family Medicine; Referring Provider Physician Assistant Medical; Visit Provider Physician Assistant Medical
DX: I10 Essential (primary) hypertension (principal)
CPT/HCPCS: 36415; 80048

== ENCOUNTER → 2024-07-27 | Outpatient (CLI) | payer MEDICARE, BC, SELFPAY ==
--- NOTE | 2024-07-27 09:15 | MRI_ITS ---
PROCEDURE: BRAIN W/WO CONTRAST 07/27/2024 REASON FOR EXAM: VISUAL FIELD DEFECTS TECHNIQUE: Routine brain MRI without and with intravenous contrast. Multiplanar and multisequence images were obtained. CONTRAST: Clariscan VOLUME: 19 mL. COMPARISON: None. FINDINGS: The ventricles are normal in size and midline in position. No evidence of acute hemorrhage or infarction. No extra-axial blood or fluid collections. No abnormal enhancement. The cerebellopontine angles are within normal limits. The paranasal sinuses are clear. The mastoid air cells are well aerated. The orbits are unremarkable. MRI/Brain W/WO Contrast IMPRESSION: No acute intracranial abnormalities. No abnormal intracranial enhancement. Reading Location: [id number]
== END | disposition home or self-care (01) ==
LOC: MRI 08:58
PROVIDERS: PCP Family Medicine; Referring Provider Family Medicine; Visit Provider Family Medicine
DX: H53.40 Unspecified visual field defects (principal)
CPT/HCPCS: 70553; A9575